=== PATIENT | male | born 1990 | race Caucasian/White ===

== ENCOUNTER 2017-07-28 13:43 | Emergency (ER) | payer OTHER ==
[2017-07-28] MEDS: SOD CHLORIDE 0.9% 250 ML IV (15:05)
[2017-07-28] MEDS: METOCLOPRAMIDE 10 MG INJ IV (15:07)
[2017-07-28] MEDS: DIPHENHYDRAMINE 50 MG INJ IV (15:07)
[2017-07-28 15:13] LABS: ADD MAN DIFF? NO
[2017-07-28 15:17] LABS: BASOPHILS % 0.4 % (0.0-2.0); MONOCYTE # 0.4 10^3/ul (0.3-0.9); POSITIVE DIFF @See below; RED CELL DISTRIBUTION WIDTH 14.5 % (11.5-14.5)
[2017-07-28] MEDS: HYDROmorphONE 0.5 MG/0.5 ML SYG IV (15:20)
[2017-07-28 15:22] LABS: HEMATOCRIT 34.9 % (42.0-52.0); HEMOGLOBIN 11.9 g/dl (14.0-18.0); RED BLOOD COUNT 4.18 10^6/ul (4.70-6.10)
[2017-07-28 15:23] LABS: EOSINOPHILS % 0.1 % (0.0-7.0); LYMPHOCYTES # 0.9 10^3/ul (0.8-2.9); LYMPHOCYTES % 11.5 % (15.0-51.0); MEAN CORPUSCULAR HEMOGLOBIN 28.5 pg (29.0-33.0); MEAN CORPUSCULAR HGB CONC 34.1 g/dl (32.0-37.0); MEAN CORPUSCULAR VOLUME 83.5 fl (82.0-101.0); MEAN PLATELET VOLUME 11.6 fl (7.4-10.4); MONOCYTES % 5.4 % (0.0-11.0); NEUTROPHIL # 6.6 10^3/ul (1.6-7.5); NEUTROPHILS % 82.2 % (39.0-77.0); PLATELET COUNT 131 10^3/UL (140-415)
[2017-07-28 15:36] LABS: INR 1.02; PARTIAL THROMBOPLASTIN TIME 30.3 Sec (25.0-35.0); PROTIME 13.5 Sec (11.9-14.9); PT RATIO 1.1
[2017-07-28 15:38] LABS: ANION GAP 20 (8-16); BLOOD UREA NITROGEN 20 mg/dl (7-20); CALCIUM 9.4 mg/dl (8.4-10.2); CARBON DIOXIDE 37 mmol/L (21-31); CHLORIDE 88 mmol/L (97-110); CREATININE 6.05 mg/dl (0.61-1.24); GLUCOSE 110 mg/dl (70-220); POTASSIUM 4.8 mmol/L (3.5-5.1); SODIUM 140 mmol/L (135-144)
== END 2017-07-28 16:54 | disposition home or self-care (01) ==
LOC: E/R 13:43
DX: I16.0 Hypertensive urgency (principal); I12.0 Hypertensive chronic kidney disease with stage 5 chronic kidney disease or end stage renal disease; N18.6 End stage renal disease; Z99.2 Dependence on renal dialysis
CPT/HCPCS: 36415; 70450; 80048; 85025; 85610; 85730; 93005; 96374; 96375; 99285-25

== ENCOUNTER 2018-04-09 11:05 | Emergency (ER) | payer OTHER ==
[2018-04-09 13:23] LABS: ADD MAN DIFF? NO
[2018-04-09 13:29] LABS: BASOPHILS % 0.3 % (0.0-2.0); EOSINOPHILS % 0.5 % (0.0-7.0); HEMOGLOBIN 7.1 g/dl (14.0-18.0); LYMPHOCYTES # 1.1 10^3/ul (0.8-2.9); LYMPHOCYTES % 18.5 % (15.0-51.0); MEAN CORPUSCULAR HEMOGLOBIN 30.5 pg (29.0-33.0); MEAN CORPUSCULAR HGB CONC 33.8 g/dl (32.0-37.0); MEAN CORPUSCULAR VOLUME 90.1 fl (82.0-101.0); MEAN PLATELET VOLUME 11.1 fl (7.4-10.4); MONOCYTE # 0.5 10^3/ul (0.3-0.9); NEUTROPHIL # 4.2 10^3/ul (1.6-7.5); NEUTROPHILS % 72.5 % (39.0-77.0); PLATELET COUNT 115 10^3/UL (140-415); POSITIVE DIFF @See below; RED BLOOD COUNT 2.33 10^6/ul (4.70-6.10); RED CELL DISTRIBUTION WIDTH 14.4 % (11.5-14.5)
[2018-04-09 13:29] LABS: WHITE BLOOD COUNT 5.7 10^3/ul (4.8-10.8)
[2018-04-09 13:45] LABS: ALANINE AMINOTRANSFERASE 26 IU/L (13-69); ALBUMIN 4.4 g/dl (3.3-4.9); ALBUMIN/GLOBULIN RATIO 1.37; ALKALINE PHOSPHATASE 96 IU/L (42-121); ANION GAP 12 (5-13); ASPARTATE AMINO TRANSFERASE 16 IU/L (15-46); BILIRUBIN,INDIRECT 0.2 mg/dl (0-1.1); BILIRUBIN,TOTAL 0.2 mg/dl (0.2-1.3); BLOOD UREA NITROGEN 26 mg/dl (7-20); CALCIUM 8.6 mg/dl (8.4-10.2); CARBON DIOXIDE 35 mmol/L (21-31); CHLORIDE 94 mmol/L (97-110); CREATININE 6.08 mg/dl (0.61-1.24); Estimated GFR 11 mL/min (>60); GLUCOSE 110 mg/dl (70-220); POTASSIUM 5.5 mmol/L (3.5-5.1); SODIUM 141 mmol/L (135-144); TOTAL PROTEIN 7.6 g/dl (6.1-8.1)
[2018-04-09 13:48] LABS: INR 1.04; PARTIAL THROMBOPLASTIN TIME 28.9 Sec (23.0-35.0); PROTIME 13.7 Sec (11.9-14.9); PT RATIO 1.1
[2018-04-09 17:30] LABS: IMMEDIATE SPIN CROSSMATCH 1 1
[2018-04-09] MEDS: NA POLYST SULFON 15 GM/60 ML BTL PO (20:58)
== END 2018-04-09 21:00 | disposition home or self-care (01) ==
LOC: E/R 11:05
DX: D64.9 Anemia, unspecified (principal); E87.5 Hyperkalemia; N18.6 End stage renal disease; I12.0 Hypertensive chronic kidney disease with stage 5 chronic kidney disease or end stage renal disease
CPT/HCPCS: 36415; 36430; 80053; 85025; 85610; 85730; 86850; 86900; 86901; 86920; 93005; 99285-25